=== PATIENT | male | born 1940 | race African-American/Black ===

== ENCOUNTER 2016-11-04 23:39 | Emergency (ER) | payer MEDICARE ==
[~2016-11-04] VITALS: Ht 180.3 cm; Wt 88.6 kg
[~2016-11-04 23:39] MED LIST: ALBUAER3 INH; AMLO5TAB2 PO; ASPI1TAB69 PO; CIPR500T2 PO; FINA5TAB2 PO; IPRA1POW8 PO; LISI-515 PO; METF500T PO; MULT1TAB84 PO; NORC5TAB PO; OMEP20TA PO; PRAV80TA2 PO; TAMS0.4C4 PO; ZETI10TA5 PO
[2016-11-04 23:45] VITALS: BP 177/93; PULSE 105; RESP 16; TEMP 98.5; O2SAT 97
[2016-11-05] MEDS ORDERED: ASPI81CH CHEW (00:22)
[2016-11-05] MEDS ORDERED: LABETALOL HCL 100 MG/20 ML VIAL IV PUSH ONE (00:30)
[2016-11-05] MEDS ORDERED: SODIUM CHLORIDE 0.9% FLUSH 10 ML FLUSH IVF PRN (00:30)
--- NOTE | 2016-11-05 00:39 | RADRPT ---
EXAM DATE/TIME: 11/05/2016 00:28 [facility] COMPARISON: No previous studies available for comparison. INDICATIONS : Dizziness. RADIATION DOSE: 56.35 CTDIvol (mGy) MEDICAL HISTORY : Hypertension. SURGICAL HISTORY : None. ENCOUNTER: Initial ACUITY: 1 day PAIN SCALE: 0/10 LOCATION: cranial TECHNIQUE: Multiple contiguous axial images were obtained of the head. Using automated exposure control and adj ustment of the mA and/or kV according to patient size, radiation dose was kept as low as reasonably a chievable to obtain optimal diagnostic quality images. DICOM format image data is available electro nically for review and comparison. FINDINGS: CEREBRUM: The ventricles are normal for age. No evidence of midline shift, mass lesion, hemorrhage or acute in farction. No extra-axial fluid collections are seen. POSTERIOR FOSSA: The cerebellum and brainstem are intact. The 4th ventricle is midline. The cerebellopontine angle i s unremarkable. EXTRACRANIAL: The visualized portion of the orbits is intact. SKULL: The calvaria is intact. No evidence of skull fracture. CONCLUSION: Normal examination. Александр Ballesteros MD on November 05, 2016 at 0:37 Board Certified Radiologist. This report was verified electronically.
--- NOTE | 2016-11-05 00:54 | PD ---
HPI Chief Complaint: Hypertension Time Seen by Provider: 00:26 Travel History International Travel<30 days: No Contact w/Intl Traveler<30days: No Traveled to known affect area: No History of Present Illness HPI The patient is a 75-year-old [place] male who presents to the emergency department for dizziness and elevated blood pressure. Patient states his blood pressure has been elevated intermittently over the last several days. The patient states he has been cooking greens that are mixed with smoked meats. The patient states her last several days his blood pressure has been elevated and he has had intermittent episodes of dizziness. He denies any acute chest pain or shortness of breath. He denies any associated nausea or vomiting. The patient does have a history of hypertension for which she takes amlodipine and lisinopril. The patient is followed by his primary physician Dr. Aguirre. He denies any weakness or numbness of the upper or lower extremities. He denies any associated dysarthria or ataxia. PFSH Past Medical History Hx Anticoagulant Therapy: Yes (STARTED BACK ON ASA YESERDAY) Arthritis: Yes Asthma: Yes Blood Disorders: No Heart Rhythm Problems: Yes (Irregular heart beat per pt ) Cancer: No Cardiac Catheterization: Yes (2005: NEGATIVE) Cardiovascular Problems: Yes High Cholesterol: Yes Chest Pain: Yes COPD: Yes Diabetes: Yes Patient Takes Glucophage: Yes (METFORMIN ) Diminished Hearing: No Endocrine: Yes Gastrointestinal Disorders: Yes (ACID REFLEX) GERD: Yes Glaucoma: No Genitourinary: Yes Hepatitis: No Hiatal Hernia: No Hypertension: Yes Immune Disorder: No Musculoskeletal: Yes Neurologic: No Psychiatric: No Reproductive: No Respiratory: Yes Immunizations Current: Yes Thyroid Disease: Yes Tetanus Vaccination: > 5 Years LMP: 1 Past Surgical History Abdominal Surgery: No AICD: No Arteriovenous Shunt: No Cardiac Surgery: Yes (CARDIAC CATHERTERIZATION) Ear Surgery: No Endocrine Surgery: Yes (THYROIDECTOMY, TONSILECTOMY) Eye Surgery: No Genitourinary Surgery: Yes (COLONSCOPY) Gynecologic Surgery: No Insulin Pump: No Joint Replacement: No Neurologic Surgery: No Oral Surgery: Yes (TONSILLECTOMY) Pacemaker: No Thoracic Surgery: No Tonsillectomy: Yes Other Surgery: Yes Social History Alcohol Use: Yes (OCCASIONAL) Tobacco Use: Yes Substance Use: No Allergies-Medications (Allergen,Severity, Reaction): Coded Allergies: atorvastatin (Verified Allergy, Intermediate, Rash, 11/05/16) Reported Meds & Prescriptions Reported Meds & Active Scripts Active Reported Aspirin 81 Mg Chew 81 Mg CHEW DAILY Proair Hfa 8.5 GM Inh (Albuterol Sulfate) 90 Mcg/Act Aer 2 Puff INH Q6H PRN 108 mcg/actuation Zetia (Ezetimibe) 10 Mg Tab 10 Mg PO DAILY Finasteride 5 Mg Tab 5 Mg PO DAILY Do not crush. Tamsulosin (Tamsulosin HCl) 0.4 Mg Cap 0.4 Mg PO HS Pravastatin 80 Mg Tab 80 Mg PO DAILY Metformin (Metformin HCl) 500 Mg Tab 500 Mg PO BIDPC With meals Amlodipine (Amlodipine Besylate) 5 Mg Tab 5 Mg PO DAILY Lisinopril 20 Mg Tab 20 Mg PO DAILY Omeprazole 20 Mg Tab 20 Mg PO DAILY Review of Systems Except as stated in HPI: all other systems reviewed are Neg Eyes: No: Blurred Vision HENT: No: Headaches, Vertigo, Lightheadedness Cardiovascular: Positive: Chest Pain or Discomfort Respiratory: No: Shortness of Breath Gastrointestinal: No: Nausea, Vomiting, Abdominal Pain Neurologic: Positive: Dizziness Physical Exam Narrative GENERAL: Awake, alert, nontoxic-appearing 75-year-old male who appears his stated age and is in no acute respiratory distress. SKIN: Focused skin assessment warm/dry. HEAD: Atraumatic. Normocephalic. EYES: Pupils equal and round. No injection or drainage. ENT: No nasal bleeding or discharge. Mucous membranes pink and moist. NECK: Trachea midline. No JVD. CARDIOVASCULAR: Regular rate and rhythm. No murmur appreciated. Heart rate in the 90s. RESPIRATORY: No accessory muscle use. Clear to auscultation. Breath sounds equal bilaterally. GASTROINTESTINAL: Abdomen soft, non-tender, nondistended. No rebound tenderness. MUSCULOSKELETAL: No obvious deformities. No clubbing. No cyanosis. No edema. NEUROLOGICAL: Awake and alert. No obvious cranial nerve deficits. Motor grossly within normal limits. Normal speech. Nonfocal. PSYCHIATRIC: Appropriate mood and affect; insight and judgment normal. Data Data Last Documented VS Vital Signs Date Time Temp Pulse Resp B/P (MAP) Pulse Ox O2 Delivery O2 Flow Rate FiO2 11/05/16 01:47 77 18 147/83 (104) 99 Room Air 11/04/16 23:45 98.5 Orders Orders Electrocardiogram (11/05/16 00:27) Complete Blood Count With Diff (11/05/16 00:27) Comprehensive Metabolic Panel (11/05/16 00:27) Ckmb (Isoenzyme) Profile (11/05/16:27) Troponin I (11/05/16 00:27) Ct Brain W/O Iv Contrast(Rout) (11/05/16 00:27) Ecg Monitoring (11/05/16 00:) Iv Access Insert/Monitor (11/05/16:) Oximetry (11/05/16 00:27) Sodium Chloride 0.9% Flush (Ns Flush) (11/05/16 00:30) Labetalol Inj (Trandate Inj) (11/05/16 00:30) CKMB (11/05/16 01:10) CKMB% (11/05/16 01:10) Labs Laboratory Tests Test 11/05/16 01:10 White Blood Count 8.1 TH/MM3 Red Blood Count 4.46 MIL/MM3 Hemoglobin 11.7 GM/DL Hematocrit 36.0 % Mean Corpuscular Volume 80.8 FL Mean Corpuscular Hemoglobin 26.3 PG Mean Corpuscular Hemoglobin Concent 32.6 % Red Cell Distribution Width 16.7 % Platelet Count 340 TH/MM3 Mean Platelet Volume 7.9 FL Neutrophils (%) (Auto) 59.7 % Lymphocytes (%) (Auto) 25.6 % Monocytes (%) (Auto) 6.9 % Eosinophils (%) (Auto) 6.9 % Basophils (%) (Auto) 0.9 % Neutrophils # (Auto) 4.8 TH/MM3 Lymphocytes # (Auto) 2.1 TH/MM3 Monocytes # (Auto) 0.6 TH/MM3 Eosinophils # (Auto) 0.6 TH/MM3 Basophils # (Auto) 0.1 TH/MM3 CBC Comment DIFF FINAL Differential Comment Blood Urea Nitrogen 10 MG/DL Creatinine 0.85 MG/DL Random Glucose 97 MG/DL Total Protein 7.1 GM/DL Albumin 3.6 GM/DL Calcium Level 8.3 MG/DL Alkaline Phosphatase 60 U/L Aspartate Amino Transf (AST/SGOT) 19 U/L Alanine Aminotransferase (ALT/SGPT) 25 U/L Total Bilirubin 0.2 MG/DL Sodium Level 143 MEQ/L Potassium Level 3.7 MEQ/L Chloride Level 106 MEQ/L Carbon Dioxide Level 28.6 MEQ/L Anion Gap 8 MEQ/L Estimat Glomerular Filtration Rate 106 ML/MIN Total Creatine Kinase 276 U/L Creatine Kinase MB 1.8 NG/ML Troponin I LESS THAN 0.02 NG/ML MDM Medical Decision Making Medical Screen Exam Complete: Yes Emergency Medical Condition: Yes Medical Record Reviewed: Yes Interpretation(s) Last Impressions Head CT 11/05/16 0027 Signed Impressions: Service Date/Time: Saturday, November 05, 2016 00:28 - CONCLUSION: Normal examination. Александр Ballesteors MD Laboratory Tests Test 11/05/16 01:10 White Blood Count 8.1 TH/MM3 Red Blood Count 4.46 MIL/MM3 Hemoglobin 11.7 GM/DL Hematocrit 36.0 % Mean Corpuscular Volume 80.8 FL Mean Corpuscular Hemoglobin 26.3 PG Mean Corpuscular Hemoglobin Concent 32.6 % Red Cell Distribution Width 16.7 % Platelet Count 340 TH/MM3 Mean Platelet Volume 7.9 FL Neutrophils (%) (Auto) 59.7 % Lymphocytes (%) (Auto) 25.6 % Monocytes (%) (Auto) 6.9 % Eosinophils (%) (Auto) 6.9 % Basophils (%) (Auto) 0.9 % Neutrophils # (Auto) 4.8 TH/MM3 Lymphocytes # (Auto) 2.1 TH/MM3 Monocytes # (Auto) 0.6 TH/MM3 Eosinophils # (Auto) 0.6 TH/MM3 Basophils # (Auto) 0.1 TH/MM3 CBC Comment DIFF FINAL Differential Comment Blood Urea Nitrogen 10 MG/DL Creatinine 0.85 MG/DL Random Glucose 97 MG/DL Total Protein 7.1 GM/DL Albumin 3.6 GM/DL Calcium Level 8.3 MG/DL Alkaline Phosphatase 60 U/L Aspartate Amino Transf (AST/SGOT) 19 U/L Alanine Aminotransferase (ALT/SGPT) 25 U/L Total Bilirubin 0.2 MG/DL Sodium Level 143 MEQ/L Potassium Level 3.7 MEQ/L Chloride Level 106 MEQ/L Carbon Dioxide Level 28.6 MEQ/L Anion Gap 8 MEQ/L Estimat Glomerular Filtration Rate 106 ML/MIN Total Creatine Kinase 276 U/L Creatine Kinase MB 1.8 NG/ML Troponin I LESS THAN 0.02 NG/ML Differential Diagnosis Differential diagnosis includes hypertensive urgency, hypertensive emergency, intracranial hemorrhage, CVA, TIA, hypertension, hyponatremia, dehydration, acute cardiac syndrome. Narrative Course IV was established, labs were drawn and sent, and the patient was placed on cardiac telemetry monitoring and continuous pulse oximetry monitoring. CT the brain was obtained. CT the brain is unremarkable. Laboratory evaluation is essentially unremarkable. The patient did not need any medications to bring his blood pressure down which came down on its own to systolic in the 140s and diastolic in the 80s. Patient is advised to follow up with his primary physician, Dr. Aguirre, and monitor his blood pressure. Patient is stable for outpatient follow-up. Diagnosis Primary Impression: Hypertension Qualified Codes: I10 - Essential (primary) hypertension Patient Instructions: General Instructions Additional Instructions: Please provide the patient a copy of his CT results and lab results at discharge. Follow-up with her primary physician. Return if symptoms worsen or progress. Med/Other Pt SpecificInfo: No Change to Meds Disposition: 01 DISCHARGE HOME Condition: Stable Jj Gallegos MD Nov 05, 2016 00:54
[2016-11-05 01:00] VITALS: BP 154/92; PULSE 78; RESP 18; O2SAT 98
[2016-11-05 01:20] VITALS: BP 155/85; PULSE 77; RESP 18; O2SAT 98
[2016-11-05 01:33] LABS: AUTOMATED NEUTROPHIL # 4.8 TH/MM3 (1.8-7.7); BASOPHIL # 0.1 TH/MM3 (0-0.2); BASOPHIL % 0.9 % (0.0-2.0); EOSINOPHIL # 0.6 TH/MM3 (0-0.4); EOSINOPHIL % 6.9 % (0.0-4.0); HEMO FLAGS DIFF FINAL; LYMPH % 25.6 % (9.0-44.0); LYMPHOCYTE # 2.1 TH/MM3 (1.0-4.8); MEAN CELL VOLUME 80.8 FL (80.0-100.0); MEAN CORPUSCULAR HEMOGLOBIN 26.3 PG (27.0-34.0); MEAN CORPUSCULAR HGB CONC 32.6 % (32.0-36.0); MONO % 6.9 % (0.0-8.0); NEUT % 59.7 % (16.0-70.0); PLATELET COUNT 340 TH/MM3 (150-450); RED BLOOD COUNT 4.46 MIL/MM3 (4.50-5.90); RED CELL DISTRIBUTION WIDTH 16.7 % (11.6-17.2); WHITE BLOOD COUNT 8.1 TH/MM3 (4.0-11.0)
[2016-11-05 01:35] VITALS: BP 150/76; PULSE 84; RESP 18; O2SAT 98
[2016-11-05 01:47] VITALS: BP_SYST 147; BP_DIAS 82; BP_DIAS 83; PULSE 77; RESP 18; O2SAT 99
[2016-11-05 01:47] LABS: ALT (GPT) 25 U/L (12-78); ANION GAP 8 MEQ/L (5-15); AST (GOT) 19 U/L (15-37); BICARBONATE 28.6 MEQ/L (21.0-32.0); BLOOD UREA NITROGEN 10 MG/DL (7-18); CHLORIDE 106 MEQ/L (98-107); GLOMERULAR FILTRATION RATE 106 ML/MIN (>89); POTASSIUM 3.7 MEQ/L (3.5-5.1); SODIUM (NA) 143 MEQ/L (136-145)
[2016-11-05 01:51] LABS: ALKALINE PHOSPHATASE 60 U/L (45-117); CREATINE KINASE 276 U/L (39-308); TOTAL BILIRUBIN ADULT 0.2 MG/DL (0.2-1.0)
[2016-11-05 02:00] VITALS: BP 139/86; PULSE 72; RESP 18; O2SAT 98
[2016-11-05 02:03] LABS: CKMB 1.8 NG/ML (0.5-3.6)
[2016-11-05 02:50] VITALS: BP 138/86
--- NOTE | 2016-11-05 11:43 | EKG ---
Date Performed: 11/05/2016 Time Performed: 00:53:08 PTAGE: 75 years EKG: Sinus rhythm RIGHT BUNDLE BRANCH BLOCK ABNORMAL ECG Compared to prior tracing no significant change PREVIOUS TRACING : 05/26/2008 10.50 DOCTOR: Geovanny Atkins Interpretating Date/Time 11/05/2016 11:41:16
== END 2016-11-05 03:05 | disposition home or self-care (01) ==
LOC: NEPC 23:39
DX: I10 Essential (primary) hypertension (principal); I45.10 Unspecified right bundle-branch block; E78.00 Pure hypercholesterolemia, unspecified; E11.9 Type 2 diabetes mellitus without complications; Z79.84 Long term (current) use of oral hypoglycemic drugs; Z79.82 Long term (current) use of aspirin; J45.909 Unspecified asthma, uncomplicated; R07.9 Chest pain, unspecified
CPT/HCPCS: 70450; 80053; 82550; 82552; 84484; 85025; 93005; 99285

== ENCOUNTER 2017-05-23 22:51 | Emergency (ER) | payer MEDICARE ==
[~2017-05-23] VITALS: Ht 177.8 cm; Wt 89.1 kg
[~2017-05-23 22:51] MED LIST changes: +ASPI-516 CHEW; -ASPI1TAB69 PO; -CIPR500T2 PO; +EZET10 PO; -IPRA1POW8 PO; -MULT1TAB84 PO; -NORC5TAB PO; -OMEP20TA PO; +OMEP20TA93 PO; -ZETI10TA5 PO
[2017-05-23 22:56] VITALS: BP 180/93; PULSE 90; RESP 16; TEMP 98.3; O2SAT 96
[2017-05-23] MEDS ORDERED: methylPREDNISolone SOD SUCC 125 MG/2 ML VIAL IV PUSH ONE (23:30)
--- NOTE | 2017-05-23 23:30 | PD ---
HPI Chief Complaint: Hypertension Time Seen by Provider: 23:15 Travel History International Travel<30 days: No Contact w/Intl Traveler<30days: No Traveled to known affect area: No History of Present Illness HPI The patient is a 76-year-old male that has multiple complaints. He states his blood pressure is elevated today also he has swelling of his right jaw that began at 8:30 PM today. He denies any tooth pain in this area. He also states in the past week he has been short of breath and is followed by Dr. Chauhan who wants him to get a noncontrast CT of the thorax tomorrow morning. He denies any chest pain. He denies any fever. He has been wheezing. The patient states he has been on lisinopril for 10 years. The patient has recently completed a course of Cipro for urinary tract infection. PFSH Past Medical History Hx Anticoagulant Therapy: Yes (STARTED BACK ON ASA YESERDAY) Arthritis: Yes Asthma: Yes Blood Disorders: No Heart Rhythm Problems: Yes (Irregular heart beat per pt ) Cancer: No Cardiac Catheterization: Yes (2004: NEGATIVE) Cardiovascular Problems: Yes High Cholesterol: Yes Chest Pain: Yes COPD: Yes Diabetes: Yes Patient Takes Glucophage: Yes Diminished Hearing: No Endocrine: Yes Gastrointestinal Disorders: Yes (ACID REFLEX) GERD: Yes Glaucoma: No Genitourinary: Yes Hepatitis: No Hiatal Hernia: No Hypertension: Yes Immune Disorder: No Musculoskeletal: Yes Neurologic: No Psychiatric: No Reproductive: No Respiratory: Yes Immunizations Current: Yes Thyroid Disease: Yes Tetanus Vaccination: Unknown Influenza Vaccination: Yes Past Surgical History Abdominal Surgery: No AICD: No Arteriovenous Shunt: No Cardiac Surgery: Yes (CARDIAC CATHERTERIZATION) Ear Surgery: No Endocrine Surgery: Yes (THYROIDECTOMY, TONSILECTOMY) Eye Surgery: No Genitourinary Surgery: Yes (COLONSCOPY) Gynecologic Surgery: No Insulin Pump: No Joint Replacement: No Neurologic Surgery: No Oral Surgery: Yes (TONSILLECTOMY) Pacemaker: No Thoracic Surgery: No Tonsillectomy: Yes Other Surgery: Yes Social History Alcohol Use: Yes (OCCASIONAL) Tobacco Use: No (quit 15 years) Substance Use: No Allergies-Medications (Allergen,Severity, Reaction): Coded Allergies: atorvastatin (Verified Allergy, Intermediate, Rash, 05/23/17) Reported Meds & Prescriptions Reported Meds & Active Scripts Active Reported Aspirin 81 Mg Chew 81 Mg CHEW DAILY Proair Hfa 8.5 GM Inh (Albuterol Sulfate) 90 Mcg/Act Aer 2 Puff INH Q6H PRN 108 mcg/actuation Zetia (Ezetimibe) 10 Mg Tab 10 Mg PO DAILY Finasteride 5 Mg Tab 5 Mg PO DAILY Do not crush. Tamsulosin (Tamsulosin HCl) 0.4 Mg Cap 0.4 Mg PO HS Pravastatin 80 Mg Tab 80 Mg PO DAILY Metformin (Metformin HCl) 500 Mg Tab 500 Mg PO BIDPC With meals Amlodipine (Amlodipine Besylate) 5 Mg Tab 5 Mg PO DAILY Lisinopril 20 Mg Tab 20 Mg PO DAILY Omeprazole 20 Mg Tab 20 Mg PO DAILY Review of Systems Except as stated in HPI: all other systems reviewed are Neg Physical Exam Narrative GENERAL: The patient is alert, oriented 3 in no respiratory distress. His vital signs show blood pressure 180/93 but are otherwise normal. SKIN: Focused skin assessment warm/dry. HEAD: Atraumatic. Normocephalic. EYES: Pupils equal and round. No scleral icterus. No injection or drainage. ENT: No nasal bleeding or discharge. Mucous membranes pink and moist. The right cheek is swollen, is not particularly tender. This appears as angioedema. It also involves the right upper lip. NECK: Trachea midline. No JVD. CARDIOVASCULAR: Regular rate and rhythm. No murmur appreciated. RESPIRATORY: No accessory muscle use. Bilateral wheezes are heard in all lung craven. Breath sounds equal bilaterally. GASTROINTESTINAL: Abdomen soft, non-tender, nondistended. Hepatic and splenic margins not palpable. MUSCULOSKELETAL: No obvious deformities. No clubbing. No cyanosis. No edema. NEUROLOGICAL: Awake and alert. No obvious cranial nerve deficits. Motor grossly within normal limits. Normal speech. PSYCHIATRIC: Appropriate mood and affect; insight and judgment normal. Data Data Last Documented VS Vital Signs Date Time Temp Pulse Resp B/P (MAP) Pulse Ox O2 Delivery O2 Flow Rate FiO2 05/24/17 00:05 75 20 129/90 (103) 97 Room Air 05/23/17 22:56 98.3 Orders Orders Electrocardiogram (05/23/17 23:15) Complete Blood Count With Diff (05/23/17 23:15) Comprehensive Metabolic Panel (05/23/17 23:15) Troponin I (05/23/17 23:15) B-Type Natriuretic Peptide (05/23/17 23:15) Urinalysis - C+S If Indicated (05/23/17 23:15) Ct Thorax/ Chest Wo Iv Contras (05/23/17 23:17) Influenzae A/B Antigen (05/23/17 23:17) Methylprednisolone So Succ Inj (Solumedr (05/23/17 23:30) Albuterol-Ipratropium Neb (Duoneb Neb) (05/23/17 23:30) Urine Culture (05/23/17 23:20) Labs Laboratory Tests Test 05/23/17 23:20 05/23/17 23:30 Urine Collection Type VOIDED Urine Color YELLOW Urine Turbidity SL CLOUDY Urine pH 6.5 Urine Specific [place] LESS/EQUAL 1.005 Urine Protein NEG mg/dL Urine Glucose (UA) NEG mg/dL Urine Ketones NEG mg/dL Urine Occult Blood NEG Urine Nitrite NEG Urine Bilirubin NEG Urine Urobilinogen 0.2 MG/DL Urine Leukocyte Esterase MOD Urine WBC 6-8 /hpf Urine WBC Clumps OCC Urine Squamous Epithelial Cells 0-5 /hpf Urine Bacteria FEW /hpf Microscopic Urinalysis Comment CULTURE INDICATED White Blood Count 5.9 TH/MM3 Red Blood Count 4.74 MIL/MM3 Hemoglobin 12.3 GM/DL Hematocrit 38.4 % Mean Corpuscular Volume 81.0 FL Mean Corpuscular Hemoglobin 26.0 PG Mean Corpuscular Hemoglobin Concent 32.1 % Red Cell Distribution Width 15.4 % Platelet Count 425 TH/MM3 Mean Platelet Volume 7.6 FL Neutrophils (%) (Auto) 43.9 % Lymphocytes (%) (Auto) 37.6 % Monocytes (%) (Auto) 8.3 % Eosinophils (%) (Auto) 6.3 % Basophils (%) (Auto) 3.9 % Neutrophils # (Auto) 2.6 TH/MM3 Lymphocytes # (Auto) 2.2 TH/MM3 Monocytes # (Auto) 0.5 TH/MM3 Eosinophils # (Auto) 0.4 TH/MM3 Basophils # (Auto) 0.2 TH/MM3 CBC Comment DIFF FINAL Differential Comment Blood Urea Nitrogen 10 MG/DL Creatinine 0.82 MG/DL Random Glucose 114 MG/DL Total Protein 7.3 GM/DL Albumin 3.6 GM/DL Calcium Level 8.2 MG/DL Alkaline Phosphatase 65 U/L Aspartate Amino Transf (AST/SGOT) 27 U/L Alanine Aminotransferase (ALT/SGPT) 31 U/L Total Bilirubin 0.2 MG/DL Sodium Level 139 MEQ/L Potassium Level 3.7 MEQ/L Chloride Level 105 MEQ/L Carbon Dioxide Level 26.3 MEQ/L Anion Gap 8 MEQ/L Estimat Glomerular Filtration Rate 110 ML/MIN Troponin I LESS THAN 0.02 NG/ML B-Type Natriuretic Peptide 16 PG/ML MDM Medical Decision Making Medical Screen Exam Complete: Yes Emergency Medical Condition: Yes Medical Record Reviewed: Yes Interpretation(s) He shows sinus rhythm with a rate of 79 and right bundle branch block but no acute ST elevation or depression. The influenza A/B antigen is negative for influenza A and influenza B. The CT thorax shows no acute intrathoracic abnormality, incidentally noted are coronary artery atherosclerotic calcifications. The urinalysis shows moderate leukocyte esterase, 68 white cells, few bacteria and culture is indicated. The BNP is normal. The complete metabolic profile shows a calcium 8.2 but is otherwise unremarkable. The troponin I is less than 0.02 and the CBC shows a hemoglobin of 12.3 and hematocrit of 38.4 but is otherwise unremarkable. Differential Diagnosis Urinary tract infection, acute coronary syndrome, congestive heart failure, EDMUND inhibitor angioedema, dental infection, hypertension poor control, COPD with acute exacerbation, anxiety induced blood pressure elevation Narrative Course The patient appears to have a urinary tract infection. He also has COPD with acute exacerbation. His blood pressure now without any treatment is 129/90. He likely has anxiety induced blood pressure elevation. The patient also has EDMUND inhibitor induced angioedema. There is no clinical evidence for a dental infection. Plan: The patient will be given a 10 day course of Macrobid. He will discontinue lisinopril and follow-up with Dr. Aguirre as soon as possible. 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 Aguirre as soon as possible. The antibiotic is taken 1 tablet twice daily. Discontinue lisinopril as this is likely what is causing her facial swelling. Med/Other Pt SpecificInfo: Prescription(s) given Scripts Nitrofurantoin Monohydrate Macrocrystals (Macrobid) 100 Mg Capsule 100 MG PO BID for Infection for 10 Days, #20 CAP 0 Refills Prov: Alvin Patrick MD 05/24/17 Prednisone (Prednisone) 20 Mg Tab 20 MG PO BID for 7 Days, #14 TAB 0 Refills Prov: Alvin Patrick MD 05/24/17 Disposition: 01 DISCHARGE HOME Condition: Stable Alvin Patrick MD May 23, 2017 23:30
[2017-05-23] MEDS: RESP: ALBUTEROL 2.5 MG/IPRATROPIUM 0.5 MG NEB (SCH) INH ×2 (23:34→23:35)
[2017-05-23 23:35] VITALS: O2SAT 98
[2017-05-23 23:35] LABS: BILIRUBIN, URINE NEG (NEG); BLOOD, URINE NEG (NEG); GLUCOSE,URINE NEG (NEG); KETONE, URINE NEG (NEG); NITRITE,URINE NEG (NEG); PH, URINE 6.5 (5.0-8.5); URINE COLOR YELLOW (YELLW/STRAW); URINE LEUKOCYTE ESTERASE MOD (NEG)
[2017-05-23 23:36] LABS: AUTOMATED NEUTROPHIL # 2.6 TH/MM3 (1.8-7.7); BASOPHIL # 0.2 TH/MM3 (0-0.2); BASOPHIL % 3.9 % (0.0-2.0); EOSINOPHIL # 0.4 TH/MM3 (0-0.4); EOSINOPHIL % 6.3 % (0.0-4.0); HEMATOCRIT 38.4 % (39.0-51.0); HEMOGLOBIN 12.3 GM/DL (13.0-17.0); LYMPH % 37.6 % (9.0-44.0); LYMPHOCYTE # 2.2 TH/MM3 (1.0-4.8); MEAN CORPUSCULAR HGB CONC 32.1 % (32.0-36.0); MEAN PLATELET VOLUME 7.6 FL (7.0-11.0); MONO % 8.3 % (0.0-8.0); MONOCYTE # 0.5 TH/MM3 (0-0.9); NEUT % 43.9 % (16.0-70.0); PLATELET COUNT 425 TH/MM3 (150-450); RED BLOOD COUNT 4.74 MIL/MM3 (4.50-5.90); RED CELL DISTRIBUTION WIDTH 15.4 % (11.6-17.2); WHITE BLOOD COUNT 5.9 TH/MM3 (4.0-11.0)
[2017-05-23 23:42] LABS: CHLORIDE 105 MEQ/L (98-107); SODIUM (NA) 139 MEQ/L (136-145)
[2017-05-23 23:46] LABS: ALBUMIN 3.6 GM/DL (3.4-5.0); BICARBONATE 26.3 MEQ/L (21.0-32.0); BLOOD UREA NITROGEN 10 MG/DL (7-18); CALCIUM 8.2 MG/DL (8.5-10.1); GLUCOSE,RANDOM 114 MG/DL (74-106)
--- NOTE | 2017-05-23 23:46 | RADRPT ---
EXAM DATE/TIME: 05/23/2017 23:26 [facility] COMPARISON: No previous studies available for comparison. INDICATIONS : Shortness of breath for 1 week. RADIATION DOSE: 20.89 CTDIvol (mGy) MEDICAL HISTORY : Diabetes mellitus type 2. Hypertension. Carcinoma, gastric. Benign prostatic hypertophy SURGICAL HISTORY : None. ENCOUNTER: Initial ACUITY: 1 week PAIN SCALE: 0/10 LOCATION: chest TECHNIQUE: Volumetric scanning of the chest was performed. Using automated exposure control and adjustment of t he mA and/or kV according to patient size, radiation dose was kept as low as reasonably achievable to obtain optimal diagnostic quality images. DICOM format image data is available electronically for r eview and comparison. Follow-up recommendations for detected pulmonary nodules are based at a minimum on nodule size and pa tient risk factors according to Fleischner Society Guidelines. FINDINGS: LUNGS: There is no consolidation or pneumothorax. No concerning pulmonary nodule is visualized. PLEURAE: There is no pleural thickening or pleural effusion. MEDIASTINUM: The heart is normal in size. No pericardial effusion. Coronary artery atherosclerotic calcifications. No mass or adenopathy. AXILLAE: Within normal limits. No lymphadenopathy. MUSCULOSKELETAL: Within normal limits for patient age. MISCELLANEOUS: The visualized upper abdominal organs demonstrate no acute abnormality. CONCLUSION: 1. No acute intrathoracic abnormality. 2. Coronary artery atherosclerotic calcifications. Braulio Mcarthur Jr., MD on May 23, 2017 at 23:43 Board Certified Radiologist. This report was verified electronically.
[2017-05-23 23:49] LABS: ALT (GPT) 31 U/L (12-78); AST (GOT) 27 U/L (15-37); CREATININE 0.82 MG/DL (0.60-1.30); GLOMERULAR FILTRATION RATE 110 ML/MIN (>89)
[2017-05-23 23:51] LABS: TOTAL BILIRUBIN ADULT 0.2 MG/DL (0.2-1.0); TOTAL PROTEIN 7.3 GM/DL (6.4-8.2)
[2017-05-23 23:52] LABS: ALKALINE PHOSPHATASE 65 U/L (45-117)
[2017-05-23 23:54] LABS: TROPONIN I LESS THAN 0.02 NG/ML (0.02-0.05)
[2017-05-23 23:58] LABS: SQUAMOUS EPITHELIAL CELL URINE 0-5 /hpf (0-5)
[2017-05-23 23:59] LABS: BACTERIA, URINE FEW /hpf
[2017-05-24] LABS: WHITE BLOOD CELL CLUMPS OCC
[2017-05-24 00:05] VITALS: BP 129/90; PULSE 75; RESP 20; O2SAT 97
[2017-05-24] MEDS ORDERED: MACR100C2 PO (00:30)
[2017-05-24] MEDS ORDERED: PRED20 PO (00:30)
[2017-05-24] MEDS ORDERED: NITROFURANTOIN MONOHYD MACROCR 100 MG CAP PO ONE (00:45)
--- NOTE | 2017-05-24 19:44 | EKG ---
Date Performed: 05/23/2017 Time Performed: 23:37:18 PTAGE: 76 years EKG: Sinus rhythm LEFT ATRIAL ENLARGEMENT RIGHT AXIS RIGHT BUNDLE BRANCH BLOCK ABNORMAL ECG PREVIOUS TRACING : 11/05/2016 00.53 Since the previous tracing, no significant change noted DOCTOR: Joseph Lauren Interpretating Date/Time 05/24/2017 19:43:39
== END 2017-05-24 00:47 | disposition home or self-care (01) ==
LOC: PHED 22:51
DX: T78.3XXA Angioneurotic edema, initial encounter (principal); N39.0 Urinary tract infection, site not specified; B96.89 Other specified bacterial agents as the cause of diseases classified elsewhere; R94.31 Abnormal electrocardiogram [ECG] [EKG]; M19.90 Unspecified osteoarthritis, unspecified site; J45.909 Unspecified asthma, uncomplicated; E78.00 Pure hypercholesterolemia, unspecified; J44.9 Chronic obstructive pulmonary disease, unspecified; E11.9 Type 2 diabetes mellitus without complications; I10 Essential (primary) hypertension; E07.9 Disorder of thyroid, unspecified; Z79.84 Long term (current) use of oral hypoglycemic drugs; Z79.82 Long term (current) use of aspirin
CPT/HCPCS: 71250; 80053; 81001; 83880; 84484; 85025; 87086; 87804; 93005; 94640; 94664; 96374; 99285; J2930